=== PATIENT | female | born 1990 | race Caucasian/White ===

== ENCOUNTER 2018-08-26 14:23 | Observation (INO) ==
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
[2018-08-26] MEDS: *HR* LORazepam 2 MG/ML VIAL IVP STA ×2 (16:41→16:45)
[2018-08-26] MEDS ORDERED: *HR* LORazepam 2 MG/ML VIAL IM STA (16:41)
[2018-08-26] MEDS ORDERED: Ondansetron 4 MG/2 ML VIAL IVP PRN (17:00)
[2018-08-26] MEDS ORDERED: Naloxone 0.4 MG/ML INJ IVP PRN (17:00)
[2018-08-26] MEDS ORDERED: *HR* LORazepam 2 MG/ML VIAL IVP PRN (17:08)
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
[2018-08-26] MEDS ORDERED: Ziprasidone 20 MG in Water for inj. (sterile) 1 ML IM PRN (17:43)
[2018-08-26] MEDS ORDERED: Thiamine (B-1) 100 MG, Folic Acid 1 MG, MVI, adult with vitamin K 10 ML in 0.9 % Sodi... IVPB SCH (18:00)
[2018-08-26] MEDS: *HR* Heparin 5,000 UNIT/ML VIAL SQ SCH (21:40)
[2018-08-26] MEDS: D5% in 0.45% NACL 1,000 ML IVC SCH (21:40)
[2018-08-27] MEDS: D5% in 0.45% NACL 1,000 ML IVC SCH ×2 (00:06→05:28)
[2018-08-27 04:05] LABS: Basophils % 0.6 %; Eosinophils # 0.1 K/mcL (0.0-0.6); Eosinophils % 1.4 %; Hematocrit 36.7 % (35.3-44.9); Hemoglobin 11.4 g/dL (11.5-15.4); Immature Granulocytes % 0.2 % (0-4); Lymphocytes # 2.7 K/mcL (0.6-4.6); Lymphocytes % 53.2 %; Mean Corpuscular HGB Conc 31.1 g/dL (31.6-35.5); Mean Corpuscular Hemoglobin 30.2 pg (28.0-33.3); Mean Corpuscular Volume 97.3 fL (83.0-100.0); Mean Platelet Volume 9.5 fL (9.4-12.4); Monocytes # 0.4 K/mcL (0.0-1.3); Monocytes % 8.4 %; Neutrophils # 1.8 K/mcL (1.6-8.9); Platelet Count 247 K/mcL (140-400); Red Blood Count 3.77 M/mcL (3.82-4.97); Red Cell Distribution Width 13.4 % (11.5-14.5); Segmented Neutrophils % 36.2 %
[2018-08-27 04:13] LABS: INR 1.1; Prothrombin Time 12.3 Seconds (9.4-12.1)
[2018-08-27 04:21] LABS: Alanine Aminotransferase 29 Units/L (7-52); Albumin 3.5 g/dL (3.5-5.7); Albumin/Globulin Ratio 1.5 (1.1-2.2); Alkaline Phosphatase 88 Units/L (34-104); Aspartate Amino Transferase 32 Units/L (13-39); BUN/Creatinine Ratio 15 (6-26); Bilirubin,Total 0.7 mg/dL (0.3-1.0); Blood Urea Nitrogen 11 mg/dL (6-20); Calcium 8.4 mg/dL (8.6-10.3); Carbon Dioxide 26 mEq/L (23-29); Chloride 111 mEq/L (98-107); Globulin 2.4 g/dL (2.4-3.5); Glucose 104 mg/dL (70-105); Magnesium 2.3 mg/dL (1.6-2.6); Osmolality,Calculated 294 (280-300); Potassium 3.1 mEq/L (3.5-5.1); Sodium 142 mEq/L (136-145); Total Protein 5.9 g/dL (6.4-8.9); eGFR For African Americans > 60 (> 60); eGFR For Non-African Americans > 60 (> 60)
[2018-08-27] MEDS: *HR* Heparin 5,000 UNIT/ML VIAL SQ SCH ×2 (05:22→14:50)
--- NOTE | 2018-08-27 07:51 | Internal Med Progress Note ---
Hospitalist Progress Note - Encounter Date of Encounter: 08/27/18 Time of Encounter: 07:49 - Subjective Interval History: The patient is seen and examined at bedside. At the time of examination she continues to be very somnolent and does not respond to many of my questions. She does follow commands today, and she is responsive to verbal stimuli, however she does fall back asleep very quickly. According to nursing she did not have any acute events overnight. She did not require many doses of Ativan overnight and she did not require any Geodon. The patient had no fever, diaphoresis. She had no tremors overnight that were obvious. There is no nausea or vomiting that is obvious. - Exam Vitals: Temp Pulse Resp BP Pulse Ox 97.2 F L 68 16 105/64 96 08/27/18 07:30 08/27/18 07:30 08/27/18 07:30 08/27/18 07:30 08/27/18 07:30 Exam: Gen: Vitals noted. No acute distress. Remains highly somnolent, responsive to loud verbal stimuli briefly however returns to sleeping state. Eyes: anicteric sclerae, moist conjunctivae; Pupils are dilated however do constrict appropriately to light HENT: Atraumatic; moist mucous membranes Neck: Trachea midline, supple Cardiac: RRR, no murmur, +S1/S2 Pulmonary: CTA bilaterally, no wheezes Abdomen: soft, nontender, no guarding Extremities: no BLE edema, nontender calf Neuro: Somnolent, follows commands appropriately. Alert to verbal stimuli however does fall asleep quite quickly. Psych: Unable to assess at this time. - Assessment and Plan (1) Acute encephalopathy Current Visit: Yes Status: Acute Assessment and Plan: Acute metabolic encephalopathy, likely secondary to intoxication Remains quite encephalopathic at this time, very somnolent The patient has not received any sedative medications for several hours We will attempt to keep the patient also sedative medications as possible for psychiatric evaluation Vitals are stable (2) Methamphetamine intoxication Current Visit: Yes Status: Acute Assessment and Plan: Methamphetamine intoxication, as evidenced by urine drug screen Patient does have history of polysubstance abuse Suspect that there is aware of drug-induced psychosis on top [facility] protocol intact for neurological monitoring Ativan as needed for severe agitation Psychiatric evaluation today (3) Acute psychosis Current Visit: Yes Status: Acute Assessment and Plan: Likely secondary to polysubstance abuse, however patient does have prominent psychiatric history Will continue to manage with ativan PRN at this time, attempt to add geodon or haldol if QTc allows Plan for Geodon 20mg IM BID prn pending psych consult (4) Polysubstance abuse Current Visit: Yes Status: Acute Assessment and Plan: Urine drug screen does demonstrate methamphetamine, Suboxone, marijuana and urine Unknown whether or not the patient has a prominent alcohol history as well Reassesses patient becomes more alert (5) Tobacco abuse Current Visit: Yes Status: Acute Assessment and Plan: Patches when necessary DVT Prophylaxis: Subcutaneous heparin - Time Spent with Patient Total time spent is greater than 50% in coordination of care (as documented) at patient's floor/unit and/or counseling patient: Internal Medicine: Result - Labs CBC & Chem 7: 08/27/18 03:16 08/27/18 03:16 Labs: Short CBC 08/27/18 Range/Units 03:16 WBC 5.0 (4.3-11.1) K/mcL Hgb 11.4 L (11.5-15.4) g/dL Hct 36.7 (35.3-44.9) % Plt Count 247 (140-400) K/mcL Neutrophils # 1.8 (1.6-8.9) K/mcL BMP 08/27/18 03:16 Sodium 142 Potassium 3.1 L Chloride 111 H Carbon Dioxide 26 BUN 11 Creatinine 0.71 Glucose 104 Calcium 8.4 L Liver Function 08/27/18 Range/Units 03:16 Total Bilirubin 0.7 (0.3-1.0) mg/dL AST 32 (13-39) Units/L ALT 29 (7-52) Units/L Alkaline Phosphatase 88 (34-104) Units/L Albumin 3.5 (3.5-5.7) g/dL - ABG Interpretation ABG results: PT/INR, D-dimer PT 12.3 Seconds (9.4-12.1) H 08/27/18 03:16 - Impressions Impressions Head CT 08/26/18 16:16 IMPRESSION: No acute intracranial abnormality. D/ / Americo Salcido MD / Americo Salcido MD Interpreting Provider: Americo Salcido MD Consult Discharge Plan - Plan Referrals: NONE,PCP [Primary Care Provider] -
[2018-08-27] MEDS ORDERED: Ziprasidone 20 MG in Water for inj. (sterile) 1 ML IM PRN (08:39)
--- NOTE | 2018-08-27 11:41 | Consult Note ---
Date of Encounter: 08/27/18 Time of Encounter: 11:31 Assessment & Recommendation (1) Substance-induced psychotic disorder Current visit: Yes Status: Acute Assessment & Recommendation: Client still has some altered thinking but she is clearing and no longer agitated. She has presented to the hospital multiple times this year with meth induced psychosis and her current presentation is consistent with the others. Client is denying SI, intent, or plan. Claims she can return to live with her parents. Do not think she requires inpatient mental health treatment. Do not think she needs a sitter. Can be discharged if she continues to clear and has somewhere safe to go. She is interested in being linked with a psychiatrist and therapist so would recommend a [employer] Priest consult prior to discharge to get her set up with appointments. She is not interested in rehab or AOD treatment of any kind. However, would recommend giving her resources in case she changes her mind as her drug addictions are likely the primary reason she keeps presenting to the hospital. Would not start any medications at this point unless she continues to need prns for agitation. If she follows through with mental health referrals meds can be started at her first outpatient appointment. History of Present Illness Requesting Physician: Zeferino Goldsmith DO Reason for consult: med recommendation History of present illness: Ms. Babin is a 28 year old female who presented to the hospital in an agitated state. She was acting bizarrely in the community and was brought in by squad. She was given benzos and antipsychotics and now seems to be clearing. Tox screen positive for multiple substances including methamphetamines. On eval today client states she was brought in for a "snake bite." When asked to see this bite she showed me her leg which is covered in bruises but has no evidence of any bites. Clearly still has some altered thinking but overall doing much better. Client admitted to this technical report writer that she has been doing meth. Claims she was recently in a rehab near [place]. Not interested in going back to rehab. Client states she has been diagnosed with Schizophrenia in the past but she is not following with a psychiatrist and she is not on any medications. Suspect past diagnosis of Schizophrenia is inaccurate and that her clinical presentations were more likely due to substance induced psychosis. Her visit history here shows multiple presentations to the ER with substance induced psychosis. She has been positive for meth on multiple visits to the ER this year alone. Client states her mood is "pretty good." She denies SI, intent, or plan. However, she is interested in being linked with outpatient mental health services for management of recurrent depression/psychotic symptoms that are likely meth induced. Client has seen mental health providers in the past. She lives at home with her parents and states she can return to their home upon being discharged from the hospital. Has somewhere safe to go. CC: Zeferino Goldsmith, DO Past Med Surg Social Fam HX - Past Medical History Medical history: no medical history, other - Past Psychiatric History Psychiatric history: Reports: schizophrenia Family psychiatric history: Unknown Family History of Suicide: Unknown - Past Surgical History Surgical History: other - Social History Smoking Status: Current every day smoker Smokeless Tobacco Status: No Alcohol use: none Drug use: opiates, marijuana, methamphetamine, IV Drug Use, prescription drug abuse - Family History Mother Living Status: Still Living Hx Family Endocrine Disorder: Yes (diabetic) Medications & Allergies Buprenorphine HCl [Subutex] 8 mg SL DAILY 03/09/15 [History] Allergy/AdvReac Type Severity Reaction Status Date / Time Penicillins Allergy Difficulty Verified 06/11/18 23:20 Breathing Procaine [From Novocain] Allergy Difficulty Verified 06/11/18 23:20 Breathing Review of Systems Constitutional: Denies: fever, chills, weakness, weight change Eyes: Denies: eye pain, vision change Ears, Nose, Throat: Denies: ear pain, throat pain, dental pain, hearing loss, congestion Cardiovascular: Denies: chest pain, palpitations, dyspnea on exertion Respiratory: Denies: cough, dyspnea, wheezes Gastrointestinal: Denies: abdominal pain, nausea, vomiting, diarrhea, constipation Genitourinary female: Denies: urgency, dysuria, frequency, abnormal menses, dyspareunia Musculoskeletal: Denies: joint swelling, joint pain Integumentary: Denies: rash, lesions, pruritus Neurological: Denies: headache, weakness, numbness, memory loss Endocrine: Denies: fatigue, heat or cold intolerance Hematologic/Lymphatic: Denies: easy bruising, lymphadenopathy Allergic/Immunologic: Denies: urticaria, itchy eyes Psychiatry Exam - Constitutional Vitals: Temp Pulse Resp BP Pulse Ox 98.6 F 89 17 123/83 95 08/27/18 10:36 08/27/18 10:36 08/27/18 10:36 08/27/18 10:36 08/27/18 10:36 General appearance: unkempt - Musculoskeletal Station: relaxed Strength & Tone: normal for patient - Psychiatric Patient Orientation: Yes Person, Yes Place Level of alertness: Alert Behavior: calm, cooperative Psychomotor activity: Normal Eye Contact: Maintains Eye Contact Mood Description: Euthymic/stable Affect description: congruent with mood, full range Speech Volume: Normal Speech pattern: normal rate, normal rhythm, normal tone, fluent, spontaneous Language & Vocabulary: consistent with education Thought Process: [place] Thought Content: No Suicidal ideation, No Homicidal ideation, No Overt delusions Perceptual Disturbances: No Auditory hallucinations, No Visual hallucinations Attention Span Ability: Capable of Focused Attention Memory Description: Immediate Intact, Recent Impaired, Remote Intact Patient Reliability: Questionable Historian Fund of knowledge: Yes abstraction ability, Yes aware of current events Intelligence Estimate: Average Judgment: Poor Insight: Minimal Results - Drug Levels and Toxicology Drug Levels and Toxicology: Drug Levels and Toxicity 08/26/18 17:26 Atkins < 0.1 L - Labs Labs: Laboratory Last Values WBC 5.0 K/mcL (4.3-11.1) 08/27/18 03:16 RBC 3.77 M/mcL (3.82-4.97) L 08/27/18 03:16 Hgb 11.4 g/dL (11.5-15.4) L 08/27/18 03:16 Hct 36.7 % (35.3-44.9) 08/27/18 03:16 MCV 97.3 fL (83.0-100.0) 08/27/18 03:16 MCH 30.2 pg (28.0-33.3) 08/27/18 03:16 MCHC 31.1 g/dL (31.6-35.5) L 08/27/18 03:16 RDW 13.4 % (11.5-14.5) 08/27/18 03:16 Plt Count 247 K/mcL (140-400) 08/27/18 03:16 MPV 9.5 fL (9.4-12.4) 08/27/18 03:16 Immature Gran % 0.2 % (0-4) 08/27/18 03:16 Seg Neutrophils % 36.2 % 08/27/18 03:16 53.2 % 08/27/18 03:16 8.4 % 08/27/18 03:16 1.4 % 08/27/18 03:16 0.6 % 08/27/18 03:16 1.8 K/mcL (1.6-8.9) 08/27/18 03:16 2.7 K/mcL (0.6-4.6) 08/27/18 03:16 0.4 K/mcL (0.0-1.3) 08/27/18 03:16 0.1 K/mcL (0.0-0.6) 08/27/18 03:16 0.0 K/mcL (0.0-0.2) 08/27/18 03:16 PT 12.3 Seconds (9.4-12.1) H 08/27/18 03:16 INR 1.1 08/27/18 03:16 Sodium 142 mEq/L (136-145) 08/27/18 03:16 Potassium 3.1 mEq/L (3.5-5.1) L 08/27/18 03:16 Chloride 111 mEq/L (98-107) H 08/27/18 03:16 Carbon Dioxide 26 mEq/L (23-29) 08/27/18 03:16 BUN 11 mg/dL (6-20) 08/27/18 03:16 0.71 mg/dL (0.60-1.20) 08/27/18 03:16 Est GFR ( Amer) > 60 (> 60) 08/27/18 03:16 Est GFR (Non-Af Amer) > 60 (> 60) 08/27/18 03:16 15 (6-26) 08/27/18 03:16 Glucose 104 mg/dL (70-105) 08/27/18 03:16 POC Glucose 97 mg/dL (70-99) 08/27/18 04:07 294 (280-300) 08/27/18 03:16 Calcium 8.4 mg/dL (8.6-10.3) L 08/27/18 03:16 Magnesium 2.3 mg/dL (1.6-2.6) 08/27/18 03:16 0.7 mg/dL (0.3-1.0) 08/27/18 03:16 AST 32 Units/L (13-39) 08/27/18 03:16 ALT 29 Units/L (7-52) 08/27/18 03:16 88 Units/L (34-104) 08/27/18 03:16 5.9 g/dL (6.4-8.9) L 08/27/18 03:16 3.5 g/dL (3.5-5.7) 08/27/18 03:16 2.4 g/dL (2.4-3.5) 08/27/18 03:16 1.5 (1.1-2.2) 08/27/18 03:16 Atkins < 0.1 mEq/L (0.6-1.2) L 08/26/18 17:26 - Impressions Impressions Head CT 08/26/18 16:16 IMPRESSION: No acute intracranial abnormality. D/ / Americo Salcido MD / Americo Salcido MD Interpreting Provider: Americo Salcido MD Consult Discharge Plan - Plan Referrals: NONE,PCP [Primary Care Provider] -
--- NOTE | 2018-08-27 14:39 | Discharge Summary ---
<Armando Phillips - Last Filed: 08/27/18 14:37> - NOTES TO OUTPATIENT PROVIDER Notes to Outpatient Provider: Likely substance induced psychosis. Psych saw, no new med recs. DC with rec for outpt psych f/u. Orders not resulted at time of discharge: Pending orders 08/26/18 14:35 ECG 12 lead ECG [ECG] Stat Date of Encounter: 08/27/18 Time of Encounter: 14:37 - Discharge Diagnosis (1) Acute encephalopathy Priority: Primary Status: Acute (2) Methamphetamine intoxication Priority: Secondary Status: Acute (3) Acute psychosis Priority: Secondary Status: Acute (4) Polysubstance abuse Priority: Secondary Status: Acute (5) Tobacco abuse Priority: Secondary Status: Acute Hospital course: Ms. Babin is a 28 year old female with history of IVDU, psychosis, behavioral concerns who presented to [facility] from [facility] ER with acute encephalopathy secondary to presumed methamphetamine intoxication with substance induced psychosis. The patient was causing public disturbance and was brought to the ED at which time she was combative and required sedation with ativan and haldol. She was unable to provide a history. Medical workup provided no useful explanation for her metabolic encephalopathy, and was essentially unrevealing. The patient did regain consciousness today and had psych evaluation at which time she was not deemed to be an immediate threat to self or others. They recommended starting no medications for psychosis as it is likely drug induced. She is not interested in participating in inpatient drug program. saw patient to offer resources, however patient would like to leave. She will be discharged on no medications. She is stable. Recommend that patient establishes with PCP and psychiatry in outpatient setting. Recommended residency clinic to patient however she declined. Discharge discussed with: patient - Time Spent with Patient Total time spent providing and/or coordinating discharge services: - Discharge Medications Prescriptions: Discontinued Buprenorphine HCl [Subutex] 8 mg SL DAILY Allergies/Adverse Reactions: Allergy/AdvReac Type Severity Reaction Status Date / Time Penicillins Allergy Difficulty Verified 06/11/18 23:20 Breathing Procaine [From Novocain] Allergy Difficulty Verified 06/11/18 23:20 Breathing Date of admission: 08/26/18 19:53 Primary care physician: PCP NONE Consults: 08/26/18 17:02 Consult to Sex Crimes Detective [CONS] Routine Reason for Consult: meth overdose 08/26/18 17:03 Consult to Psychiatry [CONS] Stat Consulting Provider: Psychiatry Ana Reason consult: Psychosis Medication recommendation Other Other reason and/or additional details: Patient comes in with likely methamphetamine overdose, suspect substance induced psychosis based on history. Will need both medication recommendations and likely psych eval pending medical clearance Call Completed: No Discharging clinician: Armando Phillips Anticipated date of discharge: 08/27/18 - Constitutional Vitals: Temp Pulse Resp BP Pulse Ox 98.6 F 89 17 123/83 95 08/27/18 10:36 08/27/18 10:36 08/27/18 10:36 08/27/18 10:36 08/27/18 10:36 Exam: Gen: Vitals noted. No acute distress. Disheveled appearing, appears anxious Eyes: anicteric sclerae, moist conjunctivae; Pupils equal and reactive to light HENT: Atraumatic; oropharynx clear with moist mucous membranes and no mucosal ulcerations Neck: Trachea midline; supple, no thyromegaly or lymphadenopathy Cardiac: RRR, no murmur, +S1/S2 Pulmonary: CTA bilaterally, no wheezes, rales or rhonchi, equal chest expansion Abdomen: soft, nontender, no guarding. No masses or hepatosplenomegaly MSK: ROM intact, no joint swelling noted Extremities: no BLE edema, nontender calf, no cyanosis or clubbing. Skin: Normal temperature, turgor and texture; no rash, ulcers or subcutaneous nodules. Bruising apparent clearly over the b/l LE, no obvious lacerations or abrasions Neuro: moves all extremities, no focal deficits. Psych: Appears anxious, speech is clear and goal directed. Judgement is poor. Patient responses are inconsistent with previous examiners documentation. Maintains good eye contact - Patient Status Disposition: Home, Self-Care Condition: Fair Functional capacity at discharge: independent ambulation Overall status at discharge: patient is back to baseline - Discharge Instructions Follow Up With: NONE,PCP [Primary Care Provider] - Additional Instructions: Follow-up with primary care. If you do not have a primary care, recommend establishing with one within one-two weeks. Recommend establishing with psychiatry in the outpatient setting. Recommend discontinuing all illicit drugs. - Diet and Activity Activity: increase activity as tolerated Diet: advance to your usual diet <Zeferino Goldsmith - Last Filed: 08/27/18 15:35> Orders not resulted at time of discharge: Pending orders 08/26/18 14:35 ECG 12 lead ECG [ECG] Stat Date of Encounter: 08/27/18 - Discharge Diagnosis (1) Acute psychosis Priority: Primary Status: Acute (2) Methamphetamine intoxication Status: Acute (3) Polysubstance abuse Status: Acute (4) Tobacco abuse Status: Acute Hospital course: Ms. Babin is a 28 year old female - Time Spent with Patient Total time spent providing and/or coordinating discharge services: Date of admission: 08/26/18 19:53 Primary care physician: PCP NONE Consults: 08/26/18 17:02 Consult to Sex Crimes Detective [CONS] Routine Reason for SW Consult: meth overdose 08/26/18 17:03 Consult to Psychiatry [CONS] Stat Consulting Provider: Jes Perez Reason consult: Psychosis Medication recommendation Other Other reason and/or additional details: Patient comes in with likely methamphetamine overdose, suspect substance induced psychosis based on history. Will need both medication recommendations and likely psych eval pending medical clearance Call Completed: No - Constitutional Vitals: Temp Pulse Resp BP Pulse Ox 97.9 F 89 18 122/74 100 08/27/18 15:02 08/27/18 15:02 08/27/18 15:02 08/27/18 15:02 08/27/18 15:02 - Attending Attestation I examined this patient and my medical decision-making was reviewed with the Resident Physician on 08/27/18. I agree with the documented findings, disposition and treatment plan as described except to the extent set forth below. Ms Babin has been in observation for acute psychotic episode due to substance abuse. There was concern for SI/HI. She was sedated and sitter placed. She is now awake. She was evaluated by psychiatry who has cleared her. She is afebrile. Heart not tachy. No wheeze. Plan d/c today. D/C time 28min
[2018-08-27 15:03] VITALS: BP 122/74
--- NOTE | 2018-08-30 09:13 | Electrocardiograph Report ---
[facility] [employer] Test Date: 2018-08-26 Pat Name: Alta Babin Department: EXAM4 Room: [facility] Gender: F Radiologic Technologist Mammogram: : 1990 Requested By: Sukhdev Eisenberg Order Number: [id number] Reading MD: Gregorio Sprague Measurements Intervals [place] Rate: 91 P: 74 NC: 165 QRS: -22 QRSD: 100 T: 91 QT: 381 QTc: 469 Interpretive Statements Sinus rhythm Borderline left axis deviation Nonspecific T abnormalities, lateral leads Electronically Signed On 08-30-2018 9:12:20 EDT by Gregorio Sprague
== END 2018-08-27 15:30 | disposition home or self-care (01) ==
LOC: EMEROOARM 14:23 → 2ANU 14:23 → SUATTDRO 19:53 → 2ANU 20:23
PROVIDERS: ADMIT Internal Medicine; ATTEND Internal Medicine

== ENCOUNTER 2019-03-16 19:27 | Inpatient (IN) ==
[2019-03-16 20:53] LABS: Amphetamine Screen,Urine Positive ng/mL (Cutoff=1000); Barbiturate Screen,Urine Negative ng/mL (Cutoff=200); Benzodiazepines Screen,Urine Negative ng/mL (Cutoff=200); Cannabinoid Screen,Urine Positive ng/mL (Cutoff = 50); Cocaine Screen,Urine Negative ng/mL (Cutoff= 300); Opiate Screen,Urine Negative ng/mL (Cutoff=300); Phencyclidine Screen,Urine Negative ng/mL (Cutoff=25)
[2019-03-16] MEDS ORDERED: *HR* LORazepam 2 MG/ML VIAL IM PRN (23:17)
[2019-03-16] MEDS ORDERED: Mag Hydrox/Al Hydrox/Simeth 30 ML UDC PO PRN (23:17)
[2019-03-16] MEDS ORDERED: hydrOXYzine pamoate 25 MG CAPSULE PO PRN (23:17)
[2019-03-16] MEDS ORDERED: Acetaminophen 325 MG TABLET PO PRN (23:17)
[2019-03-16] MEDS ORDERED: Haloperidol Lactate 5 MG/ML VIAL IM PRN (23:17)
[2019-03-16] MEDS ORDERED: QUEtiapine Fumarate 25 MG TABLET PO PRN (23:17)
[2019-03-16] MEDS ORDERED: *HR* LORazepam 1 MG TABLET PO PRN (23:17)
[2019-03-17] MEDS ORDERED: OLANZapine 5 MG TAB.RAPDIS PO ONE (12:16)
[2019-03-17] MEDS: OLANZapine 5 MG TAB.RAPDIS PO SCH (20:27)
[2019-03-18] MEDS: OLANZapine 5 MG TAB.RAPDIS PO SCH (20:39)
[2019-03-19 09:31] VITALS: BP 134/94
== END 2019-03-19 14:50 | disposition home or self-care (01) | DRG 776 ==
LOC: EMEROOARM 19:27 → 1ANU 23:11
PROVIDERS: ADMIT Psychiatry & Neurology Psychiatry; ATTEND Psychiatry & Neurology Psychiatry